=== PATIENT | female | born 1940 | race Caucasian/White ===

== ENCOUNTER 2023-12-21 16:59 | Emergency (ER) | payer MEDICARE, OTHER ==
--- NOTE | 2023-12-21 17:07 | ED Physician Documentation ---
PD HPI DYSPNEA - Stated complaint Stated Complaint: COUGH - History obtained from History obtained from: Patient, EMS - Additional information Additional information: This is an 83-year-old female who presents via EMS from [facility]. She has been having a cough for the last couple of days, coughing up some mucus, and it has been monitored by the facility. She had a negative COVID test there. Today they noted her SpO2 was down a little bit into the upper 80s and thus EMS was called and patient was brought to the ER. Patient states she has been having a cough, and some wheezing, no history of COPD or asthma to her knowledge, no history of heart failure to her knowledge. Found here in the upper 80s on room air, she was given a DuoNeb and started on 2 L. She increased briskly and to 100%. She has not had any acute tachypnea or respiratory distress, she denies having any chest pain, no known fever, no weight gain or lower extremity edema. Per POLST, patient is DNR/DNI with selective treatment only. She states she strongly desires to return to her facility and does not want to be hospitalized, though would if she must. Review of Systems Constitutional: reports: Reviewed and negative Eyes: reports: Reviewed and negative Ears: reports: Reviewed and negative Nose: reports: Reviewed and negative Throat: reports: Reviewed and negative Cardiac: reports: Reviewed and negative Respiratory: reports: Dyspnea, Cough, Wheezing GI: reports: Reviewed and negative : reports: Reviewed and negative Skin: reports: Reviewed and negative Musculoskeletal: reports: Reviewed and negative Neurologic: reports: Reviewed and negative Psychiatric: reports: Reviewed and negative Endocrine: reports: Reviewed and negative PD PAST MEDICAL HISTORY - Past Medical History Past Medical History: Yes Cardiovascular: Hypertension - Present Medications Home Medications: Ambulatory Orders Medication Instructions Recorded Confirmed Acetaminophen [Tylenol] 2 tab PO BID PRN 12/21/23 12/21/23 Albuterol Sulf [Ventolin Hfa 1 - 2 puffs INH Q4HR PRN #1 each 12/21/23 Inhaler] Ammonium Lactate 1 applic .ROUTE DAILY 12/21/23 12/21/23 Aspirin EC [Ecotrin] 1 tab PO DAILY 12/21/23 12/21/23 Azithromycin [Zithromax] 0 mg PO DAILY 4 Days #4 tablet 12/21/23 Benazepril HCl 1 tab PO DAILY 12/21/23 12/21/23 Citalopram [CeleXA] 2 tab PO DAILY 12/21/23 12/21/23 Furosemide [Lasix] 1 tab PO DAILY 12/21/23 12/21/23 Furosemide [Lasix] 20 mg PO DAILY #10 tablet 12/21/23 Ipratropium/Albuterol [Duoneb] 3 ml INH Q6H PRN #30 ml 12/21/23 Levothyroxine [Synthroid] 1 tab PO DAILY 12/21/23 12/21/23 Loperamide HCl [Imodium A-D] 1 tab PO Q6H PRN 12/21/23 12/21/23 Metoprolol Succinate [Toprol Xl] 1 tab PO DAILY 12/21/23 12/21/23 Mometasone Furoate 1 applic .ROUTE DAILY PM PRN 12/21/23 12/21/23 Mupirocin 2% Oint [Bactroban 2% 1 applic .ROUTE BID PRN 12/21/23 12/21/23 Oint] Omeprazole 1 tab PO DAILY 12/21/23 12/21/23 Potassium Chloride [Klor-Con 10] 1 tab PO DAILY 12/21/23 12/21/23 Thiamine [Vitamin B-1] 1 tab PO DAILY 12/21/23 12/21/23 allopurinoL [Allopurinol] 1 tab PO DAILY 12/21/23 12/21/23 - Allergies Allergies/Adverse Reactions: Allergies Allergy/AdvReac Type Severity Reaction Status Date / Time No Known Drug Allergies Allergy Verified 12/21/23 17:10 PD ED PE NORMAL - Vitals Vital signs reviewed: Yes - General General: Alert and oriented X 3, No acute distress, Well developed/nourished - HEENT HEENT: Atraumatic, Moist mucous membranes, Other (Hard of hearing) - Neck Neck: Supple, no meningeal sign, No adenopathy, No JVD - Cardiac Cardiac: RRR, No murmur, No gallop, No rub - Respiratory Respiratory: No respiratory distress, Other (Expiratory wheezes bilaterally, left more so than right, no crackles or rales) - Abdomen Abdomen: Normal bowel sounds, Soft, Non tender, Non distended - Back Back: No CVA TTP, No spinal TTP - Derm Derm: Normal color, Warm and dry, Other (Some scabs and venous stasis changes of both lower legs no cellulitis) - Extremities Extremities: No deformity, No tenderness to palpate, Normal ROM s pain, No calf tenderness / cord, Other (Trace edema bilateral ankles) - Neuro Neuro: Alert and oriented X 3 Eye Opening: Spontaneous Motor: Obeys Commands Verbal: Oriented GCS Score: 15 - Psych Psych: Normal mood, Normal affect Results - Vitals Vitals: Vital Signs - 24 hr 12/21/23 12/21/23 12/21/23 17:05 17:32 19:48 Temperature 36.5 C Heart Rate 74 79 73 Respiratory 24 17 18 Rate Blood Pressure 151/59 H 114/69 O2 Saturation 90 L 85 L If not protocol 2 : Oxygen Flow, liters/minute 12/21/23 20:55 Temperature Heart Rate 78 Respiratory 28 H Rate Blood Pressure O2 Saturation If not protocol : Oxygen Flow, liters/minute Oxygen O2 Source Room air Oxygen Flow Rate 2 - Labs Labs: Laboratory Tests 12/21/23 12/21/23 12/21/23 17:17 17:17 17:17 WBC 10.9 H RBC 4.63 Hgb 15.0 Hct 47.5 H MCV 102.6 H MCH 32.4 H MCHC 31.6 L RDW 15.6 H Plt Count 259 MPV 10.7 Neut # (Auto) 8.4 H Lymph # (Auto) 1.2 L Barren # (Auto) 1.1 H Eos # (Auto) 0.2 Baso # (Auto) 0.1 Absolute Nucleated RBC 0.00 Nucleated RBC % 0.0 Sodium 139 Potassium 4.5 Chloride 102 Carbon Dioxide 31 Anion Gap 6.0 BUN 22 H Creatinine 0.9 Estimated GFR (MDRD) 60 L Glucose 122 H Calcium 9.2 Total Bilirubin 1.0 AST 11 ALT 11 Alkaline Phosphatase 83 Troponin I High Sens 17.9 H* B-Natriuretic Peptide Total Protein 6.3 L Albumin 3.2 Globulin 3.1 Albumin/Globulin Ratio 1.0 Lipase 18 12/21/23 12/21/23 17:17 20:09 WBC RBC Hgb Hct MCV MCH MCHC RDW Plt Count MPV Neut # (Auto) Lymph # (Auto) Barren # (Auto) Eos # (Auto) Baso # (Auto) Absolute Nucleated RBC Nucleated RBC % Sodium Potassium Chloride Carbon Dioxide Anion Gap BUN Creatinine Estimated GFR (MDRD) Glucose Calcium Total Bilirubin AST ALT Alkaline Phosphatase Troponin I High Sens 18.2 H* B-Natriuretic Peptide 649 H Total Protein Albumin Globulin Albumin/Globulin Ratio Lipase PD Medical Decision Making - ED course Complexity details: reviewed results, re-evaluated patient, considered differential, d/w patient ED course: 83-year-old female presented with shortness of breath as described in HPI. On arrival here, patient is nontoxic-appearing, and in no did acute distress but does have generalized wheezing on exam. Differentials considered included viral bronchitis, pneumonia, CHF, asthma or COPD and less likely ACS as patient has no chest pain, PE also considered though low suspicion. Labs obtained generally stable, including WBC of 10.9, hgb 15, hcg 47.5, gfr 60. Her BNP is mildly elevated at 649, high-sensitivity troponin initially is 17.9, repeat is 18.2. The patient denies having any chest pain.She was placed on 2 L of oxygen, given a DuoNeb and 20 mg of IV Lasix. Upon reevaluation, patient feels substantially better, and she was taken off oxygen and typically hovering around 91 to 92% though did drop down to 85% once. I did consider admission for chf however patient strongly desires to avoid hospitalization. She does still have some wheezes though clinically feels much better, therefore we gave an additional albuterol neb treatment and Solu-Medrol. I have also started her on antibiotics per her x-ray which shows likely mild CHF though cannot rule out infectious source. The patient continues to deny any chest pain. She strongly desires to return to her facility, she does not want to be hospitalized if at all possible. We reassessed and the patient now has been off oxygen for the last hour or so, and generally around 91 to 92%. She is in no respiratory distress and continues to feel well. I therefore think that she can be discharged back to her facility, I have written for as needed DuoNebs, albuterol, and will give her a course of azithromycin. She also has some degree of fluid overload therefore Lasix 20 mg daily was started. She should follow-up with her PCP within the next week to determine if this medication should be continued. Return precautions reviewed with the patient as well as her facility. I have spoken with the nurse who has kindly discussed the patient with me. I have also updated her sister and POA, Zahira, and she will take the patient back to her facility. Departure - Departure Disposition: 01 Home, Self Care Clinical Impression: Bronchitis Congestive heart failure Qualifiers: Heart failure type: unspecified Heart failure chronicity: acute Qualified Code(s): I50.9 - Heart failure, unspecified Condition: Good Instructions: ED Upper Resp Infec Abx Tx, ED CHF General Prescriptions: Albuterol Sulf [Ventolin Hfa Inhaler] 1 - 2 puffs INH Q4HR PRN #1 each PRN Reason: Shortness Of Air/Wheezing Ipratropium/Albuterol [Duoneb] 3 ml INH Q6H PRN #30 ml PRN Reason: shortness of breath Furosemide [Lasix] 20 mg PO DAILY #10 tablet Azithromycin [Zithromax] 0 mg PO DAILY 4 Days #4 tablet Comments: Lucy has signs of mild congestive heart failure on her exam and x-ray. I have started her on Lasix 20 mg daily. I have prescribed 10 tablets, I would like her to be seen by her primary doctor in the meantime to determine if this medication should be continued. I am also treating for mild respiratory infection, she was given azithromycin and ceftriaxone here in the ER and will be discharged on azithromycin. She was also prescribed as needed albuterol and duoneb. She needs to work on cough and deep breathing. She may use up to 2L nasal cannula oxygen as needed at her assisted living facility. Please return if any worsening symptoms including fever, increasing difficulty breathing, or new concerns. Forms: PCP List
[2023-12-21] MEDS: IPRATROPIUM/ALBUTEROL 3 ML NEB INH STA (17:22)
[2023-12-21 17:25] LABS: BASOPHILS # (AUTO) 0.1 10^3/uL (0.0-0.1); BASOPHILS % (AUTO) 0.5 %; EOSINOPHILS # (AUTO) 0.2 10^3/uL (0.0-0.7); EOSINOPHILS % (AUTO) 1.9 %; HCT - HEMATOCRIT 47.5 % (37.0-47.0); LYMPHOCYTES # (AUTO) 1.2 10^3/uL (1.5-3.5); LYMPHOCYTES % (AUTO) 10.5 %; MEAN CORPUSCULAR HEMOGLOBIN 32.4 pg (27.0-31.0); MEAN CORPUSCULAR HGB CONC 31.6 g/dL (32.0-36.0); MEAN CORPUSCULAR VOLUME 102.6 fL (81.0-99.0); MEAN PLATELET VOLUME 10.7 fL (7.9-10.8); MONOCYTES # (AUTO) 1.1 10^3/uL (0.0-1.0); MONOCYTES % (AUTO) 9.9 %; NEUTROPHILS # (AUTO) 8.4 10^3/uL (1.5-6.6); NEUTROPHILS % (AUTO) 76.7 %; PLT - PLATELET COUNT 259 10^3/uL (130-450); RED BLOOD COUNT 4.63 10^6/uL (4.20-5.40); RED CELL DISTRIBUTION WIDTH 15.6 % (12.0-15.0); WHITE BLOOD COUNT 10.9 x10^3/uL (4.8-10.8)
--- NOTE | 2023-12-21 17:31 | XRAY Report ---
PROCEDURE: Chest 1V INDICATIONS: chest pain TECHNIQUE: One view of the chest was acquired. COMPARISON: None. FINDINGS: Surgical changes and devices: None. Lungs and pleura: Diffuse interstitial prominence. Mild vascular congestion. Perihilar airway thicke pino. No substantial pleural effusion. No pneumothorax. Mediastinum: Mediastinal contours appear normal. Heart size is borderline enlarged. Bones and chest wall: No suspicious bony lesions. Overlying soft tissues appear unremarkable. IMPRESSION: Borderline cardiomegaly with findings suspicious for mild pulmonary edema/CHF. An infectious/inflamma tory process not excluded if clinically appropriate. No focal consolidation. Reviewed by: Juvencio Chiang MD on 12/21/2023 5:30 PM PDT Approved by: Juvencio Chiang MD on 12/21/2023 5:30 PM PDT Station ID: [id number]
[2023-12-21 17:43] LABS: ALBUMIN 3.2 g/dL (3.2-5.5); CALCIUM 9.2 mg/dL (8.5-10.3); CREATININE 0.9 mg/dL (0.6-1.3); POTASSIUM 4.5 mmol/L (3.5-4.5); TOTAL PROTEIN 6.3 g/dL (6.4-8.9)
[2023-12-21] MEDS: FUROSEMIDE 20 MG/2 ML VIAL IVP STA (18:08)
[2023-12-21] MEDS: methylPREDNISolone SUCCINATE 125 MG/2 ML VIAL IVP STA (20:17)
[2023-12-21] MEDS ORDERED: cefTRIAXone 1 GM VIAL ONE (20:52)
[2023-12-21] MEDS: cefTRIAXone 1 GM in SODIUM CHLORIDE 0.9% MINIBAG 100 ML IV STA (20:54)
[2023-12-21] MEDS: AZITHROMYCIN 250 MG TABLET PO STA (20:54)
[2023-12-21] MEDS: ALBUTEROL NEB 2.5 MG/3 ML INH STA (20:55)
[2023-12-21 21:51] VITALS: BP 135/75; O2SAT 92
--- NOTE | 2023-12-21 23:28 | ED Physician Documentation ---
ED Addendum - Addendum Addendum: 12/21/23 23:25 I am accessing this chart at this time for the following reason: I received a phone call at approximately 23:00 from [facility] where the patient is staying. The person I spoke with at [facility] points out that the ED discharge (from visit earlier today) prescriptions include a prescription for azithromycin for 4 days which errantly indicates 0 mg per dose. In discussing the best way to correct this error, the staff member Ronaldo recommends that I fax a prescription to them ([phone]). I will be faxing a prescription for azithromycin 250 mg p.o. daily for days (4 doses)
== END 2023-12-21 21:46 | disposition home or self-care (01) ==
LOC: EDUNIT# → ED 16:59
DX: J40 Bronchitis, not specified as acute or chronic (principal); I11.0 Hypertensive heart disease with heart failure; I50.9 Heart failure, unspecified; Z79.899 Other long term (current) drug therapy; Z66 Do not resuscitate
CPT/HCPCS: 36415; 71045; 80053; 83690; 83880; 84484; 85025; 94640; 94664; 96365; 96375; 99284; A9270; 87637